=== PATIENT | female | born 1980 | race Caucasian/White ===

== ENCOUNTER 2022-02-12 11:22 | Emergency (ER) | payer OTHER ==
[~2022-02-12] VITALS: Ht 162.5 cm; Wt 59.0 kg
[~2022-02-12 11:22] MED LIST: KEFLEX500 MG PO; PREDNISONE20 MG PO; ZITHROMAX Z PA250 MG PO
== END 2022-02-12 14:26 | disposition home or self-care (01) ==
LOC: ED 11:22
DX: S96.911A Strain of unspecified muscle and tendon at ankle and foot level, right foot, initial encounter (principal); Z98.51 Tubal ligation status; X50.1XXA Overexertion from prolonged static or awkward postures, initial encounter; Y93.89 Activity, other specified; Y92.89 Other specified places as the place of occurrence of the external cause; Y99.8 Other external cause status